=== PATIENT | male | born 1960 | race Caucasian/White ===

== ENCOUNTER 2018-08-08 12:50 | Emergency (ER) | payer MEDICARE ==
[~2018-08-08] VITALS: Ht 180.3 cm; Wt 100.0 kg
[2018-08-08 13:07] VITALS: Ht 180.3 cm; Wt 100.0 kg
[2018-08-08] MEDS ORDERED: SINGULAIR10 MG PO (13:09)
[2018-08-08] MEDS ORDERED: BUPROPION HCL100 M1 PO (13:09)
[2018-08-08] MEDS ORDERED: HYDROCODON-ACE1 EA10 PO (13:09)
[2018-08-08] MEDS ORDERED: NAPROSYN500 MG PO (13:10)
[2018-08-08] MEDS ORDERED: EC-NAPROSYN500 MG PO (15:14)
[2018-08-08 15:26] VITALS: BP 150/95
== END 2018-08-08 15:26 | disposition home or self-care (01) ==
LOC: D.ER 12:50
DX: M54.5 Low back pain (principal); Z76.0 Encounter for issue of repeat prescription